=== PATIENT | male | born 1945 | race Caucasian/White ===

== ENCOUNTER 2018-11-01 13:47 | Emergency (ER) | payer MEDICARE, BC ==
--- NOTE | 2018-11-01 13:50 | UC ---
Lower Extremity/Ankle HPI - HPI Summary HPI Summary: 73 yo male presents with RIGHT ankle pain. He tells me that yesterday he was playing golf and had an "awkward" lie of the ball. He was hitting at an angle and when he was in his downswing he twisted his right ankle. Did not have any pain at the time. Continued playing. Today noticed pain and swelling. Has been using a cane for ambulation, which helps. Denies numbness or tingling. Nothing OTC. - History of Current Complaint Stated Complaint: ANKLE INJURY Time Seen by Provider: 11/01/18 13:49 Hx Obtained From: Patient Severity Initially: Moderate Severity Currently: Moderate Pain Intensity: 6 Pain Scale Used: 0-10 Numeric - Allergies/Home Medications Allergies/Adverse Reactions: Allergies Allergy/AdvReac Type Severity Reaction Status Date / Time bee venom protein (honey bee) Allergy Difficulty Verified 11/01/18 13:51 Breathing/Wheezing Home Medications: Home Medications Hydrochlorothiazide TAB* [Hydrodiuril TAB*] 1 tab PO DAILY 11/01/18 [History Confirmed 11/01/18] Rosuvastatin Calcium 1 tab PO DAILY 11/01/18 [History Confirmed 11/01/18] Ticagrelor* [Brilinta 90 MG*] 1 tab PO DAILY 11/01/18 [History Confirmed ] PMH/Surg Hx/FS Hx/Imm Hx Endocrine History: Dyslipidemia Cardiovascular History: Cardiac Disease, Hypertension - Surgical History Surgical History: Yes Surgery Procedure, Year, and Place: RIGHT ROTATOR CUFF. - Family History Known Family History: Positive: Non-Contributory - Social History Occupation: Retired Lives: With Family Alcohol Use: None Substance Use Type: None Smoking Status (MU): Former Smoker Have You Smoked in the Last Year: No Review of Systems All Other Systems Reviewed And Are Negative: No Constitutional: Positive: Negative Skin: Positive: Negative Respiratory: Positive: Negative Cardiovascular: Positive: Negative Neurovascular: Positive: Negative Musculoskeletal: Positive: Other: - Ankle pain Neurological: Positive: Negative Psychological: Positive: Negative Physical Exam - Summary Physical Exam Summary: GENERAL: NAD. WDWN. No pain distress. SKIN: No rashes, sores, lesions, or open wounds. CHEST: No accessory muscle use. Breathing comfortably and in no distress. CV: Pulses intact PT and DP. Cap refill <2seconds MSK: RIGHT ANKLE: Mild edema. Mild TTP overlying ATFL. Pain with inversion. Strength 5/5. Negative talar tilt. No increased laxity. NEURO: Alert. Sensations intact and symmetric B/L LEs PSYCH: Age appropriate behavior. Triage Information Reviewed: Yes Vital Signs: Vital Signs: Temp Pulse Resp BP Pulse Ox 98.1 F 60 18 139/61 100 11/01/18 13:54 11/01/18 13:54 11/01/18 13:54 11/01/18 13:54 11/01/18 13:54 Vital Signs Reviewed: Yes Diagnostics - Radiology Ankle Radiology Interpretation Completed By: Radiologist Summary of Radiographic Findings: IMPRESSION: Old injury medial malleolus with soft tissue swelling. Posterior calcaneal spur. Lower Extremity Course/Dx - Course Course Of Treatment: XR negative for acute finding Suspect ankle sprain. Pt was placed in an ABRAHAM wrap and gel ankle splint. Advised to RICE and continue using cane. Tylenol as directed for discomfort F/u with Orthopedics if symptoms do not improve within 1 week - Differential Dx/Diagnosis Provider Diagnosis: Ankle sprain Discharge ED - Sign-Out/Discharge Documenting (check all that apply): Patient Departure All imaging exams completed and their final reports reviewed: Yes - Discharge Plan Condition: Stable Disposition: HOME Patient Education Materials: Ankle Sprain (ED) Referrals: Max Torrez MD [Medical Doctor] - If Needed Lawrence Pace MD [Primary Care Provider] - Additional Instructions: If you develop a fever, shortness of breath, chest pain, new or worsening symptoms - please call your PCP or go to the ED immediately. Your blood pressure was slightly elevated at todays visit. Please see your primary provider within 4 weeks for recheck and re-evaluation. 1) Rest, Ice, and elevate your ankle intermittently throughout the day 2) Use your cane as needed for comfort 3) If your symptoms have not improved with 5-7 days, please call Orthopedics at the number below to schedule an appointment for a recheck - Billing Disposition and Condition Condition: STABLE Disposition: Home
[2018-11-01 13:58] VITALS: BP 139/61
== END 2018-11-01 15:03 | disposition home or self-care (01) ==
LOC: UCEAST 13:47
DX: S93.401A Sprain of unspecified ligament of right ankle, initial encounter (principal); X50.0XXA Overexertion from strenuous movement or load, initial encounter; Y93.53 Activity, golf; Y92.39 Other specified sports and athletic area as the place of occurrence of the external cause; Y99.8 Other external cause status; E78.5 Hyperlipidemia, unspecified; I10 Essential (primary) hypertension; Z87.891 Personal history of nicotine dependence
CPT/HCPCS: 99213; G0463